=== PATIENT | male | born 1955 | race Hispanic/Latino ===

== ENCOUNTER 2018-08-17 07:27 | Inpatient (IN) | payer BC, SELFPAY ==
[2018-08-17] MEDS ORDERED: Morphine 4 MG/ML VIAL ONE (07:47)
[2018-08-17 07:51] LABS: #Lymphocytes 1.9 thou/uL (1.20-3.40); #Monocytes 0.4 thou/uL (0.11-0.59); %Basophils 0.3 % (0.0-1.0); %Eosinophils 0.2 % (0.0-10.0); %Monocytes 3.4 % (0.0-10.0); %Neutrophils 81.1 % (42.0-75.0); Hemoglobin 16.4 g/dL (14.0-18.0); Mean Corpuscular HGB CONC 31.3 g/dL (32.0-36.0); Mean Corpuscular Hemoglobin 28.3 pg (27.0-31.0); Mean Corpuscular Volume 90.3 fL (78.0-98.0); Mean Platelet Volume 6.9 fL (7.4-10.4); Platelet Count 290 thou/uL (130-400); RBC Distribution Width 12.1 % (11.5-14.5); Red Blood Cell (RBC) Count 5.81 mill/uL (4.70-6.10); White Blood Cell (WBC) Count 12.3 thou/uL (4.8-10.8)
[2018-08-17 08:15] LABS: ALT (SGPT) 21 U/L (8-55); AST (SGOT) 19 U/L (5-34); Albumin 4.2 g/dL (3.4-4.8); Alkaline Phosphatase 117 U/L (40-150); Anion Gap 14 mmol/L (10-20); BUN (Urea Nitrogen) 17 mg/dL (8.4-25.7); Bilirubin, Total 0.7 mg/dL (0.2-1.2); Calc. Creatinine Clearance 0 mL/min (70-130); Calcium 10.2 mg/dL (7.8-10.44); Carbon Dioxide 26 mmol/L (23-31); Chloride 102 mmol/L (98-107); Estimated GFR-MDRD 52; Globulin 3.8 g/dL (2.4-3.5); Glucose 168 mg/dL (80-115); Lipase 10 U/L (8-78); Potassium 4.3 mmol/L (3.5-5.1); Sodium 138 mmol/L (136-145)
[2018-08-17] MEDS ORDERED: Lidocaine Viscous Sol 2% 15 ml UD Cup ONE (08:56)
--- NOTE | 2018-08-17 08:59 | CT ---
CT ABDOMEN AND PELVIS WITH IV CONTRAST: Date: 08/17/18 HISTORY: Abdominal pain. Vomiting. FINDINGS: Comparison made with exam of 11/21/15. There are mild dependent changes in the lung bases. Fatty infiltration of the liver is again seen wit hout hepatic mass or abnormal biliary ductal dilatation. No calcified gallstones are noted. Pancreas, adrenal glands, and spleen are normal. There is a 5.5 cm cortical cyst arising from the left kidney. 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 There is a retroaortic left renal vein. Vascu lar calcifications are present without evidence of aneurysmal dilatation of the abdominal aorta. No f ree air, free fluid, or lymphadenopathy seen in the abdomen or pelvis. The small bowel loops are mild ly dilated with transition zone in the distal ileum. There are degenerative changes in the spine. IMPRESSION: 1. Fatty liver. 2. Findings suggestive of small bowel obstruction. POS: [facility]
[2018-08-17 09:29] LABS: Bilirubin Negative (Negative); Blood, Urine Negative (Negative); Clarity CLEAR (Clear); Glucose, Urine (Dipstick) 100 mg/dL (Negative); Leukocyte Negative (Negative); Nitrite Negative (Negative); Protein, Urine (Dipstick) Trace mg/dL (Neg-Trace); Specific Gravity, Urine 1.038 (1.002-1.036); pH, Urine 8.5 (5.0-9.0)
[2018-08-17] MEDS ORDERED: Ondansetron PF 4 MG/2 ML Vial IVP PRN (10:43)
[2018-08-17] MEDS ORDERED: Ondansetron ODT 4 MG TAB SL PRN (10:43)
[2018-08-17 11:18] VITALS: BMI 43.0
[2018-08-17] MEDS: Sodium Chloride 0.9% 1,000 ML IV SCH (12:37)
[2018-08-17] MEDS ORDERED: ISOVUE-370 76%-LOCM 1 ML ONE (12:40)
[2018-08-17] MEDS: Dextrose 5 % And 0.9 % NaCl 1,000 ML IV SCH ×2 (12:43→20:15)
[2018-08-17] MEDS ORDERED: MD-Gastroview 120 ML BOT ONE (12:48)
--- NOTE | 2018-08-17 14:19 | PDOC.GSCN ---
Surgery Consult: HPI - Consult details Date: 08/17/18 Time: 10:00 Reason for consult: small bowel obstruction Requesting physician: Mary Jane Lira History of present illness: This is a 63 yo male who presented to [facility] with a CC of abdominal pain, nausea and vomiting for ~8hrs. Symptoms began this am after pt had a bm. He was evaluated in the emergency room and found to have gastric distention and a CT scan with mildly dilated loops of small bowel with a possible transition point near the ileum. Pt states he was in his normal state of health prior to this am and denies fever, chills, CP, shortness of breath, night sweats, unintentional weight loss, hematochezia, melena. Pt reports he experienced symptoms similar to this in 2016 and was told he had a partial SBO at that time which resolved with bowel rest. 08/17/18 14:09 Surgery Consult: ROS - Review of Systems All systems: 10 systems reviewed and no additional complaints unless stated below. Surgery Consult: [facility] Past Medical History: Pt denies history of chronic medical illnesses Past Surgical History: Pt denies previous surgeries - Past Family History Pertinent family history: Father with history of stomach and prostate caner and a sister with breast cancer - Past Social History Smoking Status: Former smoker Alcohol Use: occasional Drug Use History: pt denies any use Surgery Consult: Exam - Vital signs Vital signs: Vital Signs - Most Recent Temp Pulse Resp BP Pulse Ox 98 F 84 20 168/80 H 96 08/17/18 10:25 08/17/18 10:25 08/17/18 10:25 08/17/18 10:25 08/17/18 10:40 - Physical Exam General: no distress, well developed, well nourished Eye: normal ocular movement Neck: trachea midline Respiratory: clear to auscultation, normal expansion, normal respiratory effort Abdomen: soft, tender (ttp epigastric region, no guarding rigidity or rebound noted), bowel sounds (present) Integumentary: no abnormal pigmentation Neurologic: other (no focal deficit noted) Psychiatric: oriented to time, oriented to person, oriented to place Surgery Consult: Meds - Medications Medications: Current Medications Famotidine (Pepcid) 20 mg SLOW IVP Q12HR [facility] Dextrose/Sodium Chloride (D5 0.9% Ns) 1,000 mls @ 100 mls/hr IV .Q10H [facility]LOS Stop: 08/17/18 21:29 Last Admin: 08/17/18 12:43 Dose: Not Given Sodium Chloride (Normal Saline 0.9%) 1,000 mls @ 75 mls/hr IV .[id number] CARLOS Last Admin: 08/17/18 12:37 Dose: 1,000 mls Ondansetron HCl (Zofran) 4 mg IVP Q6H PRN PRN Reason: Nausea/Vomiting Stop: 08/17/18 21:29 Ondansetron HCl (Zofran Odt) 4 mg SL Q6H PRN PRN Reason: Nausea/Vomiting Stop: 08/17/18 21:29 - Allergies Allergies/Adverse Reactions: Allergies Allergy/AdvReac Type Severity Reaction Status Date / Time No Known Drug Allergies Allergy Verified 08/17/18 10:38 Surgery Consult: Results - Labs Result Diagrams: 08/17/18 07:43 08/17/18 07:43 Lab results: Laboratory Results WBC 12.3 thou/uL (4.8-10.8) H 08/17/18 07:43 RBC 5.81 mill/uL (4.70-6.10) 08/17/18 07:43 Hgb 16.4 g/dL (14.0-18.0) 08/17/18 07:43 Hct 52.5 % (42.0-52.0) H 08/17/18 07:43 MCV 90.3 fL (78.0-98.0) 08/17/18 07:43 MCH 28.3 pg (27.0-31.0) 08/17/18 07:43 MCHC 31.3 g/dL (32.0-36.0) L 08/17/18 07:43 RDW 12.1 % (11.5-14.5) 08/17/18 07:43 Plt Count 290 thou/uL (130-400) 08/17/18 07:43 MPV 6.9 fL (7.4-10.4) L 08/17/18 07:43 Neutrophils % 81.1 % (42.0-75.0) H 08/17/18 07:43 Lymphocytes % 15.0 % (21.0-51.0) L 08/17/18 07:43 Monocytes % 3.4 % (0.0-10.0) 08/17/18 07:43 Eosinophils % 0.2 % (0.0-10.0) 08/17/18 07:43 Basophils % 0.3 % (0.0-1.0) 08/17/18 07:43 Neutrophils # 10.0 thou/uL (1.40-6.50) H 08/17/18 07:43 Lymphocytes # 1.9 thou/uL (1.20-3.40) 08/17/18 07:43 Monocytes # 0.4 thou/uL (0.11-0.59) 08/17/18 07:43 Eosinophils # 0.0 thou/uL (0.0-0.7) 08/17/18 07:43 Basophils # 0.0 thou/uL (0.0-0.2) 08/17/18 07:43 Sodium 138 mmol/L (136-145) 08/17/18 07:43 Potassium 4.3 mmol/L (3.5-5.1) 08/17/18 07:43 Chloride 102 mmol/L (98-107) 08/17/18 07:43 Carbon Dioxide 26 mmol/L (23-31) 08/17/18 07:43 Anion Gap 14 mmol/L (10-20) 08/17/18 07:43 BUN 17 mg/dL (8.4-25.7) 08/17/18 07:43 Creatinine 1.38 mg/dL (0.6-1.3) H 08/17/18 07:43 Estimated GFR (MDRD) 52 08/17/18 07:43 Glucose 168 mg/dL (80-115) H 08/17/18 07:43 Calcium 10.2 mg/dL (7.8-10.44) 08/17/18 07:43 Total Bilirubin 0.7 mg/dL (0.2-1.2) 08/17/18 07:43 AST 19 U/L (5-34) 08/17/18 07:43 ALT 21 U/L (8-55) 08/17/18 07:43 Alkaline Phosphatase 117 U/L (40-150) 08/17/18 07:43 Serum Total Protein 8.0 g/dL (5.8-8.1) 08/17/18 07:43 Albumin 4.2 g/dL (3.4-4.8) 08/17/18 07:43 Globulin 3.8 g/dL (2.4-3.5) H 08/17/18 07:43 Albumin/Globulin Ratio 1.1 g/dL (1.2-2.2) L 08/17/18 07:43 Lipase 10 U/L (8-78) 08/17/18 07:43 Urine Color YELLOW (Yellow) 08/17/18 08:44 Urine Clarity CLEAR (Clear) 08/17/18 08:44 Urine pH 8.5 (5.0-9.0) 08/17/18 08:44 Ur Specific [place] 1.038 (1.002-1.036) H 08/17/18 08:44 Urine Protein Trace mg/dL (Neg-Trace) 08/17/18 08:44 Urine Glucose (UA) 100 mg/dL (Negative) H 08/17/18 08:44 Urine Ketones Negative mg/dL (Negative) 08/17/18 08:44 Urine Blood Negative (Negative) 08/17/18 08:44 Urine Nitrite Negative (Negative) 08/17/18 08:44 Urine Bilirubin Negative (Negative) 08/17/18 08:44 Urine Urobilinogen 1.0 mg/dL (0.2-1.0) 08/17/18 08:44 Ur Leukocyte Esterase Negative (Negative) 08/17/18 08:44 - EKG Data EKG shows normal: sinus rhythm Rate: normal - Radiology Interpretation CT scan - abdomen Status: image reviewed by me (and Dr Sutherland), report reviewed by me (Mildly dilated loops of small bowel with possible transition zone near the ileum) Surgery Consult: A/P - Problem (1) Bowel obstruction Current Visit: No Code(s): K56.60 - UNSPECIFIED INTESTINAL OBSTRUCTION * DO NOT USE * Status: Acute - Plan Plan: Pt to be admitted to medicine service. An NGT has been placed in the emergency dept by Dr Sutherland with ~800 cc output of mohan gastric content. Pt should be NPO for now with gentle IVF/hydration. We have ordered a SBFT for later today and will follow closely. Further plan to be delineated after conclusion of this study. Thank you for this consult.
--- NOTE | 2018-08-17 16:20 | RAD ---
SMALL BOWEL SERIES: 08/17/18 HISTORY: Vomiting, small bowel obstruction. FINDINGS: The road traffic controller film demonstrates a nasogastric tube in the proximal stomach. There are degenerative change s in the spine. There is contrast in the urinary bladder. Serial imaging was performed following the instillation of contrast into the stomach via the NG tube. There is unobstructed flow of contrast through the loops of small bowel into the colon by two hours . No abnormal loop separation or wall thickening is seen Some of the loops are mildly dilated. IMPRESSION: No evidence of high grade small bowel obstruction. POS: [facility]
--- NOTE | 2018-08-17 16:53 | HP ---
CHIEF COMPLAINT: Vomiting. HISTORY OF PRESENT ILLNESS: This patient is a 63-year-old male with a history of a small-bowel obstr uction in 11/2015, which appeared to be a small-bowel obstruction. However, the patient had no prior history of surgical intervention on the abdomen nor any prior trauma or evidence of inflammatory con ditions. This resolved spontaneously within normal small bowel follow through and he was able to hav e his NG tube out and resume his diet. He has done well since that time, had no further problems. H owever, on this occasion, the patient woke about 4:00 in the morning and started having some bowel mo vement subsequently developed some nausea and some generalized crampy abdominal discomfort. He tried to go to work, but continued to have symptoms including vomiting and therefore he presented to the e mergency department. In the emergency department, patient's CT is consistent with small-bowel obstru ction. He was evaluated by Dr. Sutherland who felt this was likely going to be nonsurgical and the patien t is being admitted to the medical service. The patient denies any associated fevers or chills. REVIEW OF SYSTEMS: Ten system review is negative other than those things mentioned in the history of present illness. PAST MEDICAL HISTORY: The patient reports some borderline blood pressures in the past, but is not di agnosed with high blood pressure, nor is he on many medications. 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 He had some degloving of his fingers and had a skin graft from the left hip area. He has had no prior i ntra-abdominal surgeries. The patient has had a couple of colonoscopies, most recently couple of yea rs ago. No findings. SOCIAL HISTORY: The patient is not . He drinks socially, maybe once a month. He has no hist ory of drug use. He is a former smoker, quit over 10 years ago. He is FULL CODE and his sisters wou ld be a surrogate decision maker should that become necessary. ALLERGIES: None. CURRENT MEDICATIONS: None. PHYSICAL EXAMINATION: VITAL SIGNS: BP 159/89, pulse 79, respirations 18, temperature 98.0, O2 sat 99% on room air. GENERAL APPEARANCE: Age appropriate male. He is slightly obese, no distress. He is very pleasant, awake, alert, oriented, pleasant and cooperative. NG tube in place. HEENT: PERRL. No OP lesions. NECK: Supple and symmetric. HEART: Regular rate and rhythm. No murmurs, gallops or rubs. LUNGS: Clear to auscultation bilaterally. No wheezes or rales. ABDOMEN: Presently soft, nontender, nondistended, positive bowel sounds. No masses, no organomegaly . EXTREMITIES: Warm and dry with trace bilateral lower extremity edema pretibially. SKIN: Normal turgor, warm and dry. PSYCHIATRIC: The patient is appropriately oriented with normal affect. IMAGING DATA: EKG shows sinus rhythm at 75. CT scan of the abdomen appears to show some fatty liver and findings consistent with small-bowel obstruction with a transition point in the distal ileum. IMPRESSION AND PLAN: 1. Small-bowel obstruction based on CT findings. He has been seen by Surgery. He has an NG tube pl aced. We will maintain some IV fluids. He has a small bowel follow through scheduled for this after noon. Patient does not have any history of prior abdominal surgeries, but does have a history of a p rior bowel obstruction in 11/2015. 2. Fatty liver. I had a long conversation with the patient regarding his obesity and the need to lo se the weight in order to help modify the fatty liver. Discussed diet at length. 3. Morbid obesity as described above. 4. Elevated blood pressure. The patient has a history of borderline hypertension. His numbers are running a bit high now. Of course, he is in a bit more of an unusual situation than his baseline. W e will continue to monitor.
[2018-08-17] MEDS: Famotidine/PF 20 mg/2ml Vial SLOW IVP SCH (21:10)
[2018-08-18] MEDS: Sodium Chloride 0.9% 1,000 ML IV SCH (00:53)
[2018-08-18 04:07] LABS: #Basophils 0.1 thou/uL (0.0-0.2); #Eosinphils 0.2 thou/uL (0.0-0.7); #Lymphocytes 2.8 thou/uL (1.20-3.40); #Neutrophils 5.4 thou/uL (1.40-6.50); %Basophils 0.6 % (0.0-1.0); %Eosinophils 1.7 % (0.0-10.0); %Lymphocytes 29.6 % (21.0-51.0); %Monocytes 10.8 % (0.0-10.0); %Neutrophils 57.4 % (42.0-75.0); Hemoglobin 14.3 g/dL (14.0-18.0); Mean Corpuscular HGB CONC 32.3 g/dL (32.0-36.0); Mean Corpuscular Hemoglobin 28.9 pg (27.0-31.0); Mean Corpuscular Volume 89.6 fL (78.0-98.0); Mean Platelet Volume 7.1 fL (7.4-10.4); Platelet Count 261 thou/uL (130-400); RBC Distribution Width 12.1 % (11.5-14.5); Red Blood Cell (RBC) Count 4.94 mill/uL (4.70-6.10); White Blood Cell (WBC) Count 9.4 thou/uL (4.8-10.8)
[2018-08-18 04:29] LABS: Anion Gap 11 mmol/L (10-20); BUN (Urea Nitrogen) 16 mg/dL (8.4-25.7); Calc. Creatinine Clearance 119 mL/min (70-130); Calcium 8.7 mg/dL (7.8-10.44); Carbon Dioxide 27 mmol/L (23-31); Chloride 106 mmol/L (98-107); Estimated GFR-MDRD 64; Glucose 109 mg/dL (80-115); Magnesium 2.4 mg/dL (1.6-2.6); Phosphorus 3.5 mg/dL (2.3-4.7); Potassium 3.6 mmol/L (3.5-5.1); Sodium 140 mmol/L (136-145)
[2018-08-18] MEDS: Famotidine/PF 20 mg/2ml Vial SLOW IVP SCH (08:03)
[2018-08-18 08:07] VITALS: BP 138/75; TEMP 98.4
--- NOTE | 2018-08-18 12:36 | PRG-2 ---
DATE OF SERVICE: 08/18/2018 The patient is seen with Dr. Dontae Sutherland SUBJECTIVE: Mr. London is a 63-year-old [facility] hospital day #2, admitted for small-bowel obstr uction, abdominal pain. The patient had a small bowel follow through yesterday that was reported as normal. He has tolerated a diet, he has had bowel movement today and has no abdominal pain. He is s itting up on the edge of the bed, tolerating clear liquid and now advance diet. Patient's vital sign s have remained stable. He is afebrile. His leukocytosis has resolved. He has no leftward shift. His chemistry is unremarkable and he is afebrile. OBJECTIVE: VITAL SIGNS: Today, temperature is 98.4, blood pressure 138/75, heart rate is 72. He is breathing 1 6 times per minute and he is 96% on room air. GENERAL: A 63-year-old male sitting at the edge of the bed in no acute distress. HEENT: Normocephalic, atraumatic. NECK: Trachea is midline. No JVD is appreciated. CHEST: No respiratory distress. Equal rise and fall. CARDIOVASCULAR: Regular rate and rhythm. ABDOMEN: Large, but soft, nontender. No grimace, no masses, no alexandra distention. Patient is passin g flatus. MUSCULOSKELETAL: Moves extremities well. SKIN: [place], warm and dry. PSYCHIATRIC: Normal mood and affect. NEUROLOGIC: Alert and oriented to person, place, time, and event. LABORATORY DATA: From today. Chemistries: Sodium 140, potassium 3.6, chloride is 106, CO2 is 27, c reatinine is 1.15, BUN of 16. Phosphorus 3.5, mag is 2.4. White blood cell count is 9.4, platelets of 261, hemoglobin and hematocrit 14.3 and 44.2 respectively. ASSESSMENT AND PLAN: 1. Small-bowel obstruction that has resolved. 2. NG tube that has been drawn. 3. Mild acute kidney injury that has improved. RECOMMENDATIONS: 1. Stop IV fluids. 2. Advance diet as tolerated. 3. We will sign off at this time. If there are any further surgical need or concern for acute surgi rey pathology, welcome to contact our team.
--- NOTE | 2018-08-18 22:39 | DIS ---
DATE OF ADMISSION: 08/17/2018 DATE OF DISCHARGE: 08/18/2018 PRIMARY CARE PHYSICIAN: Janna Mcfadden, DISCHARGE DIAGNOSIS: Small-bowel obstruction. CONSULTATION DURING THIS HOSPITALIZATION: General Surgery, Dr. Sutherland. CONDITION OF PATIENT ON THE DAY OF DISCHARGE: Stable. I assessed Mr. London on the day of discha rge. He denies any chest pain or shortness of breath. He is having bowel movements. Vital signs ar e stable. S1 and S2 are heard, regular. Lungs are clear to auscultation bilaterally. DISCHARGE MEDICATIONS: None. HOSPITAL COURSE: Mr. London is a pleasant 63-year-old gentleman, who was admitted to [facility] on 08/17/2018 for small-bowel obstruction. Please refer to Dr. Briceno's histo ry and physical note dated 08/17/2018 for further details. He was seen by General Surgery Service. He had small bowel series, which did not show any evidence of high-grade small-bowel obstruction. He is tolerating diet well, and is being discharged home in a stable condition. On the day of discharge, he has normal white count, normal hemoglobin, normal platelet count, and unr emarkable Chem-7. Many thanks for allowing me to participate in your patient's care. Please feel free to contact me wi th any questions or concerns. DISCHARGE DESTINATION: Home. TOTAL AMOUNT OF TIME SPENT COORDINATING THIS DISCHARGE: 32 minutes.
== END 2018-08-18 13:05 | disposition home or self-care (01) | DRG 389 ==
LOC: ERS 07:27 → EDBD 07:27 → T4-A 09:45
PROVIDERS: ADMIT Internal Medicine; ATTEND Internal Medicine
DX: K56.609 Unspecified intestinal obstruction, unspecified as to partial versus complete obstruction (principal); Z68.41 Body mass index [BMI] 40.0-44.9, adult; N17.9 Acute kidney failure, unspecified; K76.0 Fatty (change of) liver, not elsewhere classified; E66.01 Morbid (severe) obesity due to excess calories; Z93.1 Gastrostomy status
CPT/HCPCS: 36415; 74177; 74250; 80048; 80053; 81003; 83690; 83735; 84100; 85025; 93005; 96361; 96374; J2270; S0028

== ENCOUNTER 2018-11-20 16:47 | Inpatient (IN) | payer BC, SELFPAY ==
[2018-11-20] MEDS ORDERED: Enoxaparin Sodium 100 MG/ML SYRINGE ONE ×2 (17:36→17:39)
[2018-11-20 18:33] LABS: #Eosinphils 0.2 thou/uL (0.0-0.7); #Lymphocytes 2.9 thou/uL (1.20-3.40); #Monocytes 0.7 thou/uL (0.11-0.59); #Neutrophils 5.3 thou/uL (1.40-6.50); %Basophils 0.5 % (0.0-1.0); %Eosinophils 2.4 % (0.0-10.0); %Lymphocytes 31.7 % (21.0-51.0); %Neutrophils 57.4 % (42.0-75.0); Hemoglobin 14.5 g/dL (14.0-18.0); Mean Corpuscular HGB CONC 32.7 g/dL (32.0-36.0); Mean Corpuscular Hemoglobin 29.6 pg (27.0-31.0); Mean Corpuscular Volume 90.4 fL (78.0-98.0); Mean Platelet Volume 7.3 fL (7.4-10.4); Platelet Count 198 thou/uL (130-400); RBC Distribution Width 11.8 % (11.5-14.5); Red Blood Cell (RBC) Count 4.91 mill/uL (4.70-6.10); White Blood Cell (WBC) Count 9.2 thou/uL (4.8-10.8)
[2018-11-20 18:56] LABS: ALT (SGPT) 10 U/L (8-55); AST (SGOT) 13 U/L (5-34); Albumin 3.7 g/dL (3.4-4.8); Alkaline Phosphatase 112 U/L (40-150); Anion Gap 14 mmol/L (10-20); BUN (Urea Nitrogen) 15 mg/dL (8.4-25.7); Bilirubin, Total 0.4 mg/dL (0.2-1.2); CK (CPK) 71 U/L (30-200); Calc. Creatinine Clearance 0 mL/min (70-130); Carbon Dioxide 21 mmol/L (23-31); Chloride 107 mmol/L (98-107); Estimated GFR-MDRD 61; Glucose 99 mg/dL (80-115); Potassium 4.2 mmol/L (3.5-5.1); Protein, Total 6.7 g/dL (5.8-8.1); Sodium 138 mmol/L (136-145)
[2018-11-20 21:56] LABS: Troponin I 0.075 ng/mL (< 0.028)
[2018-11-20] MEDS ORDERED: Ondansetron PF 4 MG/2 ML Vial IVP PRN (22:30)
[2018-11-20] MEDS ORDERED: Ondansetron ODT 4 MG TAB SL PRN (22:30)
[2018-11-20] MEDS ORDERED: Acetaminophen 325 MG TAB PO PRN (22:30)
--- NOTE | 2018-11-21 00:37 | HP ---
PRIMARY CARE PHYSICIAN: Janna Mcfadden DO CHIEF COMPLAINT: Shortness of breath. HISTORY OF PRESENT ILLNESS: Mr. London is a pleasant 63-year-old man who had denied any past medical history besides a small bowel obstruction in 2015 and again in August 2018. He had presented to [facility] after he had experienced some shortness of breath earlier this morning. He had been seen earlier this morning at the [place] ED for these symptoms, during his initial workup, it was found that his troponin be slightly elevated and indeterminate at 0.058, he was given aspirin and transferred to [facility] for further workup and management of his condition. Upon arrival, he had denied any fever or chills, denied any headache or blurred vision. He had denied any chest pain, shortness of breath, abdominal pain, no nausea, or vomiting. His serial troponins are trended and his troponin has seemed to trend up to 0.081. He had remained in sinus rhythm on the monitor and had remained asymptomatic. He was given Lovenox 100 mg in the ED. His chest x-ray showed borderline cardiac size given body habitus. Otherwise, no congestion, change of pleural effusion noted and no lobar consolidation was seen. It was determined the patient be admitted under observation, he was placed on telemetry and Cardiology Services will be consulted for further evaluation of his indeterminate troponins, echocardiogram was ordered and pending at this time. REVIEW OF SYSTEMS: All other systems reviewed and found to be negative unless mentioned in the HPI. PAST MEDICAL HISTORY: Previous history of two small bowel obstructions in the past, which required no surgical intervention. He also has some documented elevated blood pressures in the past, however, no prior history of diagnosis of hypertension. PAST SURGICAL HISTORY: Previous skin graft to his fingers from a degloving injury. SOCIAL HISTORY: He denies any tobacco or illicit drug use, he does admit to drinking socially. He states he was a former smoker and quit about 10 years ago. He is full code and his sisters would be his surrogate decision maker should that be necessary. ALLERGIES: NONE. CURRENT HOME MEDICATIONS: None. PHYSICAL EXAMINATION: VITAL SIGNS: BP 132/83, pulse 76, respirations 20, O2 saturations 95% on room air. Temp 98.1 degrees Fahrenheit. GENERAL: The patient is awake, alert, and oriented x3. No acute distress noted. HEENT: Atraumatic, normocephalic. Pupils are round and reactive to light. Extraocular muscles intact. Moist mucous membranes noted. NECK: Normal range of motion. Trachea midline. Supple. No JVD noted. CARDIOVASCULAR: Positive S1 and S2. Regular rate and rhythm. No murmurs auscultated. RESPIRATORY: Clear to auscultation bilaterally. No wheezes, rales, or rhonchi. Equal chest expansion. ABDOMEN: Soft, nontender. Bowel sounds present. Obese. MUSCULOSKELETAL: Strength 5+ bilaterally, upper and lower extremities. Moves all extremities equal. No edema noted. NEUROLOGIC: Cranial nerves 2 through 12 grossly intact. No focal deficits noted. The patient is oriented to person, place, and time. Speech is normal and intact. Gait not assessed. SKIN: Warm, dry, and intact. No ulcerations or lesions noted. No rashes. PSYCHIATRIC: Good mood and affect. LABORATORY DATA: WBC 9.2, RBC 4.91, hemoglobin 14.5, platelet 198. Sodium 138, potassium 4.2, anion gap 14, BUN 15, creatinine 1.2, estimated GFR 61. Troponin 0.058, 0.081, 0.075. DIAGNOSTIC IMAGING: Portable chest x-ray showed borderline cardiac size, no congestion change or pleural effusion, no lobar consolidation was seen. EKG showed normal sinus rhythm with a rate of 78, no ST or T wave changes. ASSESSMENT AND PLAN: 1. Chest pain. We will rule out cardiac etiology, Cardiology Services, Dr. Mccain will be consulted in the a.m. Echocardiogram ordered and pending at this time. Serial troponins are indeterminate at this time. No further EKG changes. 2. Shortness of breath, the patient remains stable at this time, he remains asymptomatic, as above consult Cardiology Services and await echocardiogram results. 3. Indeterminate troponin as above. 4. Chronic kidney disease, stage 3, stable at this time. Continue to monitor BMP. 5. Deep venous thrombosis and gastrointestinal prophylaxis. 6. Code status, full code. 7. Surrogate decision maker is his sister. DISPOSITION: Pending further workup and clinical findings. Job ID: [id number]
[2018-11-21 00:55] VITALS: BMI 41.6
[2018-11-21 05:32] LABS: #Basophils 0.1 thou/uL (0.0-0.2); #Eosinphils 0.3 thou/uL (0.0-0.7); #Lymphocytes 3.2 thou/uL (1.20-3.40); #Monocytes 0.8 thou/uL (0.11-0.59); #Neutrophils 4.2 thou/uL (1.40-6.50); %Eosinophils 3.5 % (0.0-10.0); %Lymphocytes 37.3 % (21.0-51.0); %Monocytes 9.8 % (0.0-10.0); %Neutrophils 48.4 % (42.0-75.0); Hemoglobin 14.7 g/dL (14.0-18.0); Mean Corpuscular HGB CONC 32.4 g/dL (32.0-36.0); Mean Corpuscular Hemoglobin 29.7 pg (27.0-31.0); Mean Corpuscular Volume 91.5 fL (78.0-98.0); Mean Platelet Volume 7.2 fL (7.4-10.4); Platelet Count 195 thou/uL (130-400); RBC Distribution Width 11.9 % (11.5-14.5); Red Blood Cell (RBC) Count 4.96 mill/uL (4.70-6.10); White Blood Cell (WBC) Count 8.6 thou/uL (4.8-10.8)
[2018-11-21 05:59] LABS: Anion Gap 13 mmol/L (10-20); BUN (Urea Nitrogen) 14 mg/dL (8.4-25.7); Calc. Creatinine Clearance 116 mL/min (70-130); Calcium 9.2 mg/dL (7.8-10.44); Carbon Dioxide 23 mmol/L (23-31); Cardiac Risk 4.5 (Less than 4.5); Chloride 108 mmol/L (98-107); Cholesterol 127 mg/dl (< 200 Desired); Estimated GFR-MDRD 64; Glucose 116 mg/dL (80-115); HDL Cholesterol 28 mg/dL (>60 Neg Risk); LDL Cholesterol, Calculated 76 mg/dL; Potassium 4.2 mmol/L (3.5-5.1); Sodium 140 mmol/L (136-145); Triglycerides 115 mg/dL (Less than 150)
[2018-11-21] MEDS: Aspirin 325 mg Enteric Coated Tablet PO SCH (08:28)
[2018-11-21] MEDS: Famotidine 20 MG TAB PO SCH ×2 (08:28→20:27)
[2018-11-21] MEDS ORDERED: Enoxaparin Sodium 40 MG/0.4 ML SYRINGE SC SCH (09:00)
--- NOTE | 2018-11-21 10:25 | PDOC.PN ---
- Subjective Encounter Start Date: 11/21/18 Encounter Start Time: 09:30 Subjective: Reports SOB is much better, denies CP or palpations -: Denies other complaints, -: Patient examined - Objective Resuscitation Status - Order Detail: 11/20/18 22:34 Resuscitation Status Routine Co-Sign Provider: Resuscitation Status: FULL: Full Resuscitation Vital Signs & Weight: Vital Signs (12 hours) Temp Pulse Resp BP BP Pulse Ox 11/21/18 08:35 98.4 F 68 16 137/77 96 11/21/18 04:00 98 F 69 16 121/73 96 11/20/18 22:34 98.4 F 70 18 146/73 H 97 Weight Weight 124.284 kg I&O: 11/20/18 11/21/18 11/22/18 06:59 06:59 06:59 Intake Total 800 Output Total 625 Balance 175 Result Diagrams: 11/21/18 05:21 11/21/18 05:21 Phys Exam - Physical Examination HEENT: PERRLA, moist MMs Neck: no nodes, no JVD Respiratory: no wheezing, clear to auscultation bilateral Cardiovascular: RRR, no significant murmur Gastrointestinal: soft, non-tender Musculoskeletal: no edema, pulses present Neurological: non-focal, normal sensation, moves all 4 limbs Lymphatic: no nodes Psychiatric: normal affect, A&O x 3 Skin: no rash, normal turgor, cap refill <2 seconds Dx/Plan (1) SOB (shortness of breath) on exertion Code(s): R06.02 - SHORTNESS OF BREATH Status: Acute (2) Chest pain Code(s): R07.9 - CHEST PAIN, UNSPECIFIED Status: Acute (3) Elevated troponin Code(s): R74.8 - ABNORMAL LEVELS OF OTHER SERUM ENZYMES Status: Acute (4) Chronic kidney disease (CKD) stage G3a/A1, moderately decreased glomerular filtration rate (GFR) between 45-59 mL/min/1.73 square meter and albuminuria creatinine ratio less than 30 mg/g Code(s): N18.3 - CHRONIC KIDNEY DISEASE, STAGE 3 (MODERATE) Status: Chronic - Plan cont current plan of care Cardiology consult- Dr. Mccain has seen patient today -: Stress test, Echo, Ddimer, pending -: Will monitor VS, recheck labs in here in AM * . Review of Systems - Review of Systems Respiratory: Shortness of Breath (Reports SOB has improved) - Medications/Allergies Allergies/Adverse Reactions: Allergies Allergy/AdvReac Type Severity Reaction Status Date / Time No Known Drug Allergies Allergy Verified 11/21/18 01:31 Medications: Current Medications Aspirin (Ecotrin) 325 mg PO DAILY [facility] Last Admin: 11/21/18 08:28 Dose: 325 mg Enoxaparin Sodium (Lovenox) 40 mg SC 0900 [facility] Last Admin: 11/21/18 08:28 Dose: 40 mg Famotidine (Pepcid) 20 mg PO BID [facility] Last Admin: 11/21/18 08:28 Dose: 20 mg Sodium Chloride (Flush - Normal Saline) 10 ml IVF Q12HR [facility] Last Admin: 11/21/18 08:33 Dose: 10 ml Sodium Chloride (Flush - Normal Saline) 10 ml IVF PRN PRN PRN Reason: Saline Flush
--- NOTE | 2018-11-21 11:34 | CON ---
DATE OF CONSULTATION: HISTORY OF PRESENT ILLNESS: The patient is a very pleasant 63-year-old gentleman who presents with acute onset of dyspnea and chest discomfort. The patient states that he was eating breakfast, when he left the restaurant, he suddenly became very short of breath. He was gasping for air. The patient states he had some mild chest discomfort. He went to the local emergency room feeling weak and short of breath. He was transferred for further evaluation. The patient denies having any present chest discomfort. PAST MEDICAL HISTORY: Significant one for history of small bowel obstruction. PAST SURGICAL HISTORY: He has had hand surgery. MEDICATIONS: None. SOCIAL HISTORY: He is a former smoker. ALLERGIES: NO KNOWN DRUG ALLERGIES. REVIEW OF SYSTEMS: Ten point system otherwise unremarkable. No history of bruising or bleeding. No nausea, vomiting, or diarrhea. The patient denies having any fevers or chills. Ten point systems unremarkable. PHYSICAL EXAMINATION: GENERAL: Obese gentleman, in no acute distress. VITAL SIGNS: Blood pressure of 137/77. NECK: No jugular distention. LUNGS: Clear to auscultation. HEART: Regular rate and rhythm. Normal S1, S2. ABDOMEN: Distended. EXTREMITIES: No edema. VASCULAR: Radial pulses are 2+. LABORATORY DATA: Sodium 140, potassium 4.2, chloride 108, bicarb 23, BUN 14, creatinine is 1.15, troponin 0.081. White blood cell count 8.6, hemoglobin 14.7, hematocrit 45.4, and his platelets are 195. His EKG revealed normal sinus rhythm, normal ECG. IMPRESSION: 1. Shortness of breath. 2. Chest discomfort. 3. Obesity. This gentleman presents with primarily the acute onset of dyspnea. We will obtain a D-dimer to make sure there is no evidence that he had a pulmonary embolus. The patient did undergo a Cardiolite stress test with no evidence of ischemia. The patient's EKG is unremarkable and cardiac enzymes are indeterminate. We will follow this patient with you through his hospitalization. Job ID: [id number]
--- NOTE | 2018-11-21 11:58 | HP ---
PRIMARY CARE PROVIDER: Janna Mcfadden DO. HISTORY OF PRESENT ILLNESS: The patient was admitted to [facility] through [facility] for chest discomfort, shortness of breath. The patient has no complicating medical problems. PHYSICAL EXAMINATION: VITAL SIGNS: Revealed normal blood pressure 146/73, pulse 70, respirations 18, pulse ox 97. HEART: Has a regular rate and rhythm. First and second heart sounds clear. CHEST: Clear. LABORATORY DATA: His laboratory revealed normal comprehensive metabolic profile. Troponin 0.81, 0.075. EKG showed no acute EKG changes. PLAN: He is being scheduled to be evaluated with a cardiac stress test because of the abnormal troponins. He may require cardiology consult. Job ID: [id number]
--- NOTE | 2018-11-21 13:06 | CT ---
CT ANGIOGRAM CHEST WITH CONTRAST: HISTORY: Shortness of breath. COMPARISON: Radiograph from the prior day. TECHNIQUE: CT angiogram chest performed after the intravenous administration of contrast, with 3D rendering prov ided. FINDINGS: There are segmental pulmonary emboli involving all the segments of the right lower lobe. In the ante rior segment right upper lobe, the posterior segment right upper lobe, and the apical segment right u pper lobe, segmental emboli are present. Right middle lobe segmental emboli are present. Segmental embolus is present in the anterior segment left upper lobe, as well as the lingular segmental arterie s, as well as the left anterior and lateral basal lower lobe segmental arteries. There is mild reflux of contrast within the hepatic veins and the suprahepatic IVC. No pericardial e ffusion. No significant flattening of the intraventricular septum. The ascending aorta measures up to 3.8 cm in size. Small paratracheal lymph nodes measure up to 5 mm in size. The spleen is unremarkable. The pancreas is unremarkable. The lung parenchyma is clear. No pneumot horax. No evidence for pulmonary infarction. No effusion. No suspicious osteolytic or osteoblastic lesion. Limited evaluation of the upper abdomen is unremarkable. Extensive embolism burden throughout the segmental arteries bilaterally. There is evidence of right heart strain with reflux of contrast within the suprahepatic IVC. IMPRESSION: Extensive bilateral pulmonary emboli with right heart strain. CODE CR (CHARGE NURSE NOTIFIED OF FINDINGS ON 11/21/2018 AT 12:06 PM) POS: MARILYN
[2018-11-21] MEDS ORDERED: Enoxaparin Sodium 80 MG/0.8 ML SYRINGE SC SCH (14:30)
[2018-11-21] MEDS ORDERED: Enoxaparin Sodium 120 MG/0.8 ML SYRINGE SC SCH (21:00)
[2018-11-22] MEDS ORDERED: Apixaban 5 MG TAB PO SCH ×2 (03:00→21:00)
[2018-11-22] MEDS: Famotidine 20 MG TAB PO SCH (09:14)
[2018-11-22] MEDS: Aspirin 325 mg Enteric Coated Tablet PO SCH (09:14)
[2018-11-22 09:28] LABS: #Basophils 0.1 thou/uL (0.0-0.2); #Eosinphils 0.3 thou/uL (0.0-0.7); #Lymphocytes 2.4 thou/uL (1.20-3.40); #Monocytes 0.7 thou/uL (0.11-0.59); #Neutrophils 3.8 thou/uL (1.40-6.50); %Basophils 1.2 % (0.0-1.0); %Eosinophils 4.3 % (0.0-10.0); %Lymphocytes 33.3 % (21.0-51.0); %Monocytes 9.5 % (0.0-10.0); %Neutrophils 51.7 % (42.0-75.0); Hemoglobin 15.8 g/dL (14.0-18.0); Mean Corpuscular HGB CONC 32.8 g/dL (32.0-36.0); Mean Corpuscular Hemoglobin 29.4 pg (27.0-31.0); Mean Corpuscular Volume 89.7 fL (78.0-98.0); Mean Platelet Volume 7.3 fL (7.4-10.4); Platelet Count 223 thou/uL (130-400); RBC Distribution Width 11.9 % (11.5-14.5); Red Blood Cell (RBC) Count 5.37 mill/uL (4.70-6.10); White Blood Cell (WBC) Count 7.3 thou/uL (4.8-10.8)
[2018-11-22 09:40] LABS: Anion Gap 12 mmol/L (10-20); BUN (Urea Nitrogen) 13 mg/dL (8.4-25.7); Calc. Creatinine Clearance 114 mL/min (70-130); Calcium 9.6 mg/dL (7.8-10.44); Carbon Dioxide 26 mmol/L (23-31); Chloride 104 mmol/L (98-107); Estimated GFR-MDRD 64; Glucose 105 mg/dL (80-115); Sodium 138 mmol/L (136-145)
[2018-11-22 10:05] LABS: INR-International Normal Ratio 1.1; Prothrombin Time 14.6 SEC (12.0-14.7)
[2018-11-22 10:13] LABS: D-Dimer Test 5.23 *mcg/mL (0.27-0.43)
--- NOTE | 2018-11-22 10:34 | PDOC.PN ---
- Subjective Encounter Start Date: 11/22/18 Encounter Start Time: 09:31 Subjective: Patient reports constipation x 2 days. No n/v. Eating/drinking. + Flatus. -: No chest pain or sob. No palpitations. He reports tenderness to right calf -: and states this is constant since lower leg injury 2 months ago. Feels well in himself otherwise. He denies any known history of coagulation disorders or PE/DVT in him or family. 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 - Objective Resuscitation Status - Order Detail: 11/20/18 22:34 Resuscitation Status Routine Co-Sign Provider: Resuscitation Status: FULL: Full Resuscitation Vital Signs & Weight: Vital Signs (12 hours) Temp Pulse Resp BP Pulse Ox 11/22/18 08:03 98 11/22/18 07:40 98.3 F 66 16 139/65 98 11/22/18 03:04 98.7 F 71 16 127/60 96 Weight Admit Weight 274 lb Weight 269 lb 12.8 oz I&O: 11/21/18 11/22/18 11/23/18 06:59 06:59 06:59 Intake Total 800 770 240 Output Total 625 1075 Balance 175 -305 240 Result Diagrams: 11/22/18 09:09 11/22/18 09:09 Phys Exam - Physical Examination Constitutional: NAD HEENT: PERRLA, moist MMs, sclera anicteric, oral pharynx no lesions Neck: supple, full ROM Respiratory: clear to auscultation bilateral Cardiovascular: RRR Gastrointestinal: soft, non-tender, no distention, positive bowel sounds obese Musculoskeletal: no edema, pulses present bilateral calf tenderness, right > left Neurological: normal sensation, moves all 4 limbs Psychiatric: normal affect, A&O x 3 Skin: no rash, normal turgor, cap refill <2 seconds Dx/Plan (1) Multiple pulmonary emboli Code(s): I26.99 - OTHER PULMONARY EMBOLISM WITHOUT ACUTE COR PULMONALE Status : Acute (2) Constipation Code(s): K59.00 - CONSTIPATION, UNSPECIFIED Status: Acute (3) Chronic kidney disease (CKD) stage G3a/A1, moderately decreased glomerular filtration rate (GFR) between 45-59 mL/min/1.73 square meter and albuminuria creatinine ratio less than 30 mg/g Code(s): N18.3 - CHRONIC KIDNEY DISEASE, STAGE 3 (MODERATE) Status: Chronic - Plan cont current plan of care Patient on Eliquis. O2 sats normal. Pulm consult given extent of PEs. -: Likely due to his sedentary state due to his job. Hypercoag studies ordered -: Doppler to confirm PE due DVT rather than malignancy or clotting disorder -: For constipation: Miralax and encourage fluid intake. -: For possible discharge today, PCP aware of dx and need for fup. * .
[2018-11-22] MEDS ORDERED: Polyethylene Glycol 3350 17 GM Packet PO SCH (10:42)
--- NOTE | 2018-11-22 12:51 | ULT ---
ULTRASOUND WITH DOPPLER DUPLEX VENOUS LOWER EXTREMITY BILATERAL CPT: 38174 ICD-10-PCS: B54D HISTORY: Pain and edema. TECHNIQUE: Color flow Doppler, spectral waveform analysis of pulsed Doppler, and gleason-scale imaging with mahogany gabriele and augmentation, were used to evaluate the bilateral common femoral, femoral, popliteal, steam frame operator ior tibial, and superficial femoral, veins; and the proximal portions of the profunda femoral and gre ater saphenous, veins. FINDINGS: There is abnormal diminished compressibility and flow within the right popliteal vein compatible with deep venous thrombus. No left sided DVT is seen. Incidental note of lymph node formation at the righ t inguinal. IMPRESSION: Occlusive DVT involving the right popliteal vein. Notification of findings placed to care provider at the tinme of the exam. POS: MARILYN
--- NOTE | 2018-11-22 13:07 | CON ---
DATE OF CONSULTATION: 11/20/2018 CONSULTING PHYSICIAN: Ray. REASON FOR CONSULTATION: Pulmonary emboli. HISTORY OF PRESENT ILLNESS: This patient is a 63-year-old male, who presented to the hospital on 11/20 with a sudden episode of increasing shortness of breath. He was noted to have an indeterminate troponin at the time of admission. He was seen by Cardiology. He eventually underwent a CT pulmonary angiogram which showed bilateral pulmonary thromboemboli. He was initially managed with Lovenox. He has been converted to Eliquis. However, he has not received the proper dose yet. He has no previous history of pulmonary emboli. He has had no inciting traumatic events to his legs. 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 PAST MEDICAL HISTORY: Small bowel obstructions, hypertension. PAST SURGICAL HISTORY: Skin graft to his fingers from a degloving injury. MEDICATIONS: Prior to admission, none. SOCIAL HISTORY: Quit smoking about 10 years ago. Occasionally drinks alcohol. Does not use illicit drugs. 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 ALLERGIES: NONE. MEDICATIONS: Prior to admission, none. REVIEW OF SYSTEMS: A 10-point review of systems is otherwise negative. PHYSICAL EXAMINATION: VITAL SIGNS: Temperature 97.9, pulse 68, respirations 20, sat 97%, and blood pressure 141/66. HEENT: Pupils are reactive. Sclerae anicteric. Oropharynx is clear. NECK: No adenopathy, JVD, or bruits. LUNGS: Clear without wheezing or rhonchi. CARDIAC: S1, S2 regular without audible murmur. ABDOMEN: Soft, nontender, nondistended. EXTREMITIES: He has trace edema in both lower extremities. NEUROLOGIC: No focal deficits. SKIN: No rashes, bruising, or jaundice. LABORATORY DATA: Sodium 138, potassium 4, chloride 104, CO2 of 26, BUN 13, creatinine 1.2, glucose 105. White count 7.3, hemoglobin 15, hematocrit 48.2, and platelet count 223. I reviewed a CT pulmonary angiogram. He definitely has bilateral pulmonary emboli. ASSESSMENT: 1. Pulmonary emboli. 2. No evidence of inciting event to cause the pulmonary embolism. PLAN: The patient needs Eliquis at a dose of 10 mg twice daily for 7 days, then convert to 5 mg daily, thereafter. Treat for a total of 6 months. He will follow up with Dr. Mcfadden. Job ID: [id number]
[2018-11-22 15:56] VITALS: BP 144/75; TEMP 98.2
[2018-11-23] MEDS ORDERED: Apixaban 5 MG TAB PO SCH (09:00)
[2018-11-23] MEDS ORDERED: Polyethylene Glycol 3350 17 GM Packet PO SCH (09:00)
--- NOTE | 2018-11-23 17:34 | EKG ---
Test Reason : CHEST PAIN Blood Pressure : / mmHG Vent. Rate : 078 BPM Atrial Rate : 078 BPM P-R Int : 172 ms QRS Dur : 094 ms QT Int : 384 ms P-R-T Axes : 050 -25 021 degrees QTc Int : 437 ms Normal sinus rhythm Normal ECG Confirmed by SHAKIR LITTLE, JON Santana ([id number]), social media editor HUMA DWYER ([id number]) on 11/23/2018 5:34:22 PM Referred By: Confirmed By:JON SCHILLING MD
== END 2018-11-22 18:53 | disposition home or self-care (01) | DRG 176 ==
LOC: ERS 16:47 → ERHOLD 18:09 → OBSVTOIN 18:09 → EDBD 18:09 → 2SW 22:14
PROVIDERS: ADMIT Emergency Medicine; ATTEND Emergency Medicine
DX: I26.99 Other pulmonary embolism without acute cor pulmonale (principal); Z68.41 Body mass index [BMI] 40.0-44.9, adult; N18.3 Chronic kidney disease, stage 3 (moderate); R74.8 Abnormal levels of other serum enzymes; K59.00 Constipation, unspecified; E66.9 Obesity, unspecified; Z87.891 Personal history of nicotine dependence
CPT/HCPCS: 36415; 71275; 80048; 80061; 81240; 81241; 82550; 82553; 83090; 84443; 85025; 85240; 85300; 85303; 85305; 85307; 85379; 85598; 85610; 85730; 86147; 93005; 93306; 93970; 94760; 96372; J1650